=== PATIENT | female | born 1970 | race African-American/Black ===

== ENCOUNTER 2024-12-05 20:26 | Emergency (ER) | payer OTHER ==
--- OUTSIDE RECORDS SUMMARY | 2024-12-05 20:29 | XMS REPORT | Continuity of Care Document ---
Author Name Unknown Address [address] [facility] [address] [place] [address] [facility] thconnect Address [address] [facility] [address] [place] [address] Care Team Providers Care Retail Bakery Manager Name Role Phone Jose Boland Attending Clinician Unavailab Lees Attending Clinician Unavail Carrie rCespo Attending Clinician Unavaila Jose Weiss Admitting Clinician Unavailab diana Ching Admitting Clinician Unavail Carrie Crespo Admitting Clinician Maia juarez Payers Payer Name Policy Type Policy Number Effective Date Expirati on Date Source [employer]ET[employer] [id number] 2019 00:00:00 Problems Condition Name Condition Details Condition Category Status Onset Date Resolution Date Last Treatment Date Treating Clinician Comments Source Tenosynovi tis of right radial styloid Tenosynovi tis of Right Radial Styloid Problem Active 1-02 00:00: 00 [facility] Postoperat quentin nausea Postoperat quentin Nausea Problem Active 8-07 00:00: 00 [facility] Acquired trigger finger of right middle finger Acquired Trigger Finger of Right Middle Finger Problem Active 7-23 00:00: 00 [facility] 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 Problem Active 4-18 00:00: 00 [facility] Arthrofibr osis of left knee Arthrofibr osis of Left Knee Problem Active 1- 00:00: 00 [facility] Aftercare Aftercare Problem Active 2021-10 2 00:00: 00 [facility] Post traumatic osteoarthr itis Post Traumatic Osteoarthr itis Problem Active 2021-10 00:00: 00 [facility] Acquired valgus deformity of right knee Acquired Valgus Deformity of Right Knee Problem Active 2021-10 00:00: 00 [facility] Osteoarthr itis of left knee joint Osteoarthr itis of Left Knee Joint Problem Active 2021-10 00:00: 00 [facility] Pain of left knee joint Pain of Left Knee Joint Problem Active 2021-10 00:00: 00 [facility] Patellofem oral osteoarthr itis Patellofem oral Osteoarthr itis Problem Active 2017-10 0 00:00: 00 [facility] Snapping thumb syndrome Snapping Thumb Syndrome Problem Active 5 00:00: 00 [facility] Carpal tunnel syndrome Carpal Tunnel Syndrome Problem Active 5 00:00: 00 [facility] Osteoarthr itis of knee Osteoarthr itis of Knee Problem Active 01-25 00:00: 00 [facility] Chondromal acia Chondromal acia Problem Active 2011-10 00:00: 00 [facility] Current tear of medial cartilage AND/OR meniscus of knee Current Tear of Medial Cartilage AND/OR Meniscus of Knee Problem Active 2011-10 00:00: 00 [facility] Sprain of cruciate ligament of knee Sprain of Cruciate Ligament of Knee Problem Active 2011-10 00:00: 00 [facility] Allergies, Adverse Reactions, Alerts Allergy Name Allergy Type Status Severity Reaction(s) Onset Date Inactive Date Treating Clinician Comments Source No Known Allergie s DA Active U 04-24 00:00: 00 [facility] No Known Allergie s DA Active U 10-13 00:00: 00 [facility] No Known Drug Allergie s DA Active U 2021-10- 00:00: 00 [facility] No Known Allergie s DA Active U 06-25 00:00: 00 [facility] Social History Smoking Status Start Date Stop Date Source Never Smoker [facility] Medications Ordered Medication Name Filled Medication Name Start Date Stop Date Current Medication? Ordering Clinician Indication Dosage Frequency Signature (SIG) Comments Components Source Wegovy 2.4 mg/0.75 mL subcutaneou s pen injector INJECT 1 SYRINGE SUBCUTANEOU SLY ONCE A WEEK Wegovy 2.4 mg/0.75 mL subcutaneou s pen injector INJECT 1 SYRINGE SUBCUTANEOU SLY ONCE A WEEK No Wegovy 2.4 mg/0.75 mL subcutaneo us pen injector INJECT 1 SYRINGE SUBCUTANEO USLY ONCE A WEEK [facility] cephalexin 500 mg capsule TAKE 1 CAPSULE BY MOUTH TWICE A DAY cephalexin 500 mg capsule TAKE 1 CAPSULE BY MOUTH TWICE A DAY No cephalexin 500 mg capsule TAKE 1 CAPSULE BY MOUTH TWICE A DAY [facility] acetaminoph en 325 mg tablet acetaminoph en 325 mg tablet No acetaminop hen 325 mg tablet [facility] meloxicam 15 mg tablet Take 1 tablet every day by oral route with meals. meloxicam 15 mg tablet Take 1 tablet every day by oral route with meals. No 1 Q1D meloxicam 15 mg tablet Take 1 tablet every day by oral route with meals. [facility] ondansetron HCl 4 mg tablet TAKE 1 TABLET BY MOUTH TWICE A DAY FOR 3 DAYS ondansetron HCl 4 mg tablet TAKE 1 TABLET BY MOUTH TWICE A DAY FOR 3 DAYS No ondansetro n HCl 4 mg tablet TAKE 1 TABLET BY MOUTH TWICE A DAY FOR 3 DAYS [facility] tirzepatide 15mg/b6-4mg /0.5ml mdv (2ml 60mg) INJECT 50 UNITS (15MG) subcutaneou s ONCE WEEKLY tirzepatide 15mg/b6-4mg /0.5ml mdv (2ml 60mg) INJECT 50 UNITS (15MG) subcutaneou s ONCE WEEKLY No tirzepatid e15mg/b6-4 mg/0.5ml mdv (2ml 60mg) INJECT 50 UNITS (15MG) subcutaneo us ONCE WEEKLY [facility] Vital Signs Vital Name Observation Time Observation Value Comments S ource Height 2024-10-04 00:00:00 60 [in_i] [facility] Body Weight 2024-10-04 00:00:00 181 [lb_av] [facility] BMI (Body Mass Index) 2024-08-09 00:00:00 35.3 kg/m2 [facility] Body Weight 2024-08-09 00:00:00 181 [lb_av] [facility] Height 2024-08-09 00:00:00 60 [in_i] [facility] Height 2024-06-14 00:00:00 60 [in_i] [facility] BMI (Body Mass Index) 2024-06-14 00:00:00 35.3 kg/m2 [facility] Body Weight 2024-06-14 00:00:00 181 [lb_av] [facility] Height 2024-05-17 00:00:00 60 [in_i] [facility] Body Weight 2024-05-17 00:00:00 181 [lb_av] [facility] BMI (Body Mass Index) 2024-05-17 00:00:00 35.3 kg/m2 [facility] Body Weight 2024-04-24 00:00:00 181 [lb_av] [facility] Height 2024-04-24 00:00:00 60 [in_i] [facility] BMI (Body Mass Index) 2024-04-24 00:00:00 35.3 kg/m2 [facility] Height 2023-01-18 00:00:00 61 [in_i] [facility] BMI (Body Mass Index) 2023-01-18 00:00:00 34 kg/m2 [facility] Body Weight 2023-01-18 00:00:00 180 [lb_av] [facility] Height 2022-11-03 00:00:00 61 [in_i] [facility] BMI (Body Mass Index) 2022-11-03 00:00:00 34 kg/m2 [facility] Body Weight 2022-11-03 00:00:00 180 [lb_av] [facility] Height 2022-10-12 00:00:00 61 [in_i] [facility] BMI (Body Mass Index) 2022-10-12 00:00:00 34 kg/m2 [facility] Body Weight 2022-10-12 00:00:00 180 [lb_av] [facility] Height 2022-09-07 00:00:00 61 [in_i] [facility] BMI (Body Mass Index) 2022-09-07 00:00:00 34 kg/m2 [facility] Body Weight 2022-09-07 00:00:00 180 [lb_av] [facility] Height 2022-08-16 00:00:00 61 [in_i] [facility] Procedures Procedure Date / Time Performed Performing Clinicia n Source Incise Finger Tendon Sheath 2024-05-07 00:00:00 [facility] XR, knee, 3 view 2023-01-18 00:00:00 [facility] XR, knee, 3 view 2022-10-12 00:00:00 [facility] XR, bone length, hip to ankle 2022-08-16 00:00:00 [facility] XR, knee, 3 view 2022-08-10 00:00:00 [facility] Knee Surgery [facility] Encounters Start Date/Time End Date/Time Encounter Type Admission Type Attending Clinicians Care Facility Care Department Encounter ID Source 2024-11-16 08:34:00 2024-11-16 08:34:00 Outpatient Jose Leon [facility] DA[facility] [id number] 56 [facility] 2024-10-04 00:00:00 2024-10-04 00:00:00 Jose Boland MD: [address] [place] [phone] , Ph. [phone] [place] [facility] [address] [id number] [facility] 2024-08-09 00:00:00 2024-08-09 00:00:00 Jose Boland MD: [address] [place] [phone] , Ph. [phone] [place] [facility] [address] [place] [id number] [facility] 2024-06-14 00:00:00 2024-06-14 00:00:00 Jose Boland MD: [address] [place] [phone] , Ph. [phone] [place] [facility] [address] [id number] [facility] 2024-05-17 00:00:00 2024-05-17 00:00:00 Jose Boland MD: [address] [place] [phone] , Ph. [phone] [facility] [place] [facility] [address] [id number] [facility] 2024-05-07 08:59:00 2024-05-07 08:59:00 Outpatient Jose Leon [facility] DA[facility] [id number] 23 [facility] 2024-05-07 00:00:00 2024-05-07 00:00:00 Jose Boland MD: [address] [place] [phone] , Ph. [phone] [facility] [place] [facility] [id number] [facility] 2024-04-24 00:00:00 2024-04-24 00:00:00 Jose Boland MD: [address] [place] [address] , Ph. [phone] [facility] [place] [facility] [id number] [facility] 2023-05-06 00:00:00 2023-05-06 00:00:00 Outpatient [facility] _Husse_MD AOSM AOSM [id number] [facility] 2023-04-19 00:00:00 2023-04-19 00:00:00 Outpatient [facility] _Husse_ AOSM AOSM [id number] [facility] 2023-03-25 00:00:00 2023-03-25 00:00:00 Outpatient [facility] _Husse_ AOSM AOSM [id number] [facility] 2023-03-25 00:00:00 2023-03-25 00:00:00 Outpatient [facility] _Husse_ AOSM AOSM [id number] [facility] 2023-01-18 00:00:00 2023-01-18 00:00:00 Carrie Woo MD: [address] [place] [address] , Ph. [phone] [facility] [place] [facility] [id number] [facility] 2022-11-14 00:00:00 2022-11-14 00:00:00 Outpatient [facility] _Husse_ AOSM AOSM [id number] [facility] 2022-11-14 00:00:00 2022-11-14 00:00:00 Outpatient [facility] _Husse_ AOSM AOSM [id number] [facility] 2022-11-14 00:00:00 2022-11-14 00:00:00 Outpatient [facility] _Betinase_ AOSM AOSM [id number] [facility] 2022-11-03 00:00:00 2022-11-03 00:00:00 JENNIFFER Alvarado: [address] [place] [address] , Ph. [phone] [facility] [place] [facility] [id number] [facility] 2022-10-25 00:00:00 2022-10-25 00:00:00 Outpatient [facility] _Betinase_ AOSM AOSM [id number] [facility] 2022-10-25 00:00:00 2022-10-25 00:00:00 Outpatient [facility] _Clara_ AOSM AOSM [id number] [facility] 2022-10-18 00:00:00 2022-10-18 00:00:00 Outpatient [facility] _Husse_ AOSM AOSM [id number] [facility] 2022-10-14 05:03:00 2022-10-14 05:03:00 Outpatient Carrie Arciniega [facility] [id number] [address] [place] [address] [facility] 2022-10-14 00:00:00 2022-10-14 00:00:00 Carrie Woo MD: [address] [place] [address] , Ph. [phone] [facility] [place] [facility] [id number] [facility] 2022-10-12 00:00:00 2022-10-12 00:00:00 Outpatient [facility] _Husse_ AOSM AOSM [id number] [facility] 2022-10-12 00:00:00 2022-10-12 00:00:00 Outpatient [facility] _Husse_MD AOSM AOSM [id number] [facility] 2022-10-12 00:00:00 2022-10-12 00:00:00 Carrie Woo MD: [address] [place] [phone] , Ph. [phone] [facility] [place] [facility] [address] [place] [id number] [facility] 2022-10-06 00:00:00 2022-10-06 00:00:00 Outpatient [facility] _Husse_MD AOSM AOSM [id number] [facility] 2022-10-06 00:00:00 2022-10-06 00:00:00 Outpatient [facility] _Husse_MD AOSM AOSM [id number] [facility] 2022-09-29 00:00:00 2022-09-29 00:00:00 Outpatient [facility] _Husse_MD AOSM AOSM [id number] [facility] 2022-09-29 00:00:00 2022-09-29 00:00:00 JENNIFFER Alvarado: [address] [place] [phone] , Ph. [phone] [place] [facility] [id number] [facility] 2022-09-07 00:00:00 2022-09-07 00:00:00 Outpatient [facility] _Husse_MD AOSM AOSM [id number] [facility] 2022-09-07 00:00:00 2022-09-07 00:00:00 JENNIFFER Alvarado: [address] [place] [phone] , Ph. [phone] [place] [place] [facility] [id number] [facility] 2022-09-01 00:00:00 2022-09-01 00:00:00 Outpatient [facility]_[place] _Betinase_MD AOSM AOSM [id number] [facility] 2022-08-20 00:00:00 2022-08-20 00:00:00 Outpatient [facility] _Husse_MD AOSM AOSM [id number] [facility] 2022-08-18 09:04:00 2022-08-19 14:10:00 Inpatient Carrie Arciniega [facility] [id number] [facility] [place] [facility] 2022-08-18 00:00:00 2022-08-18 00:00:00 Outpatient [facility] _Betinase_ AOSM AOSM [id number] [facility] 2022-08-18 00:00:00 2022-08-18 00:00:00 Carrie Woo MD: [address] [place] [address] , Ph. [phone] [place] [place] [facility] [id number] [facility] 2022-08-16 16:12:00 2022-08-16 16:12:00 Outpatient Carrie Woo [facility] [id number] [facility] 2022-08-16 00:00:00 2022-08-16 00:00:00 Outpatient [facility] _Clara_ AOSM AOSM [id number] [facility] 2022-08-16 00:00:00 2022-08-16 00:00:00 Carrie Woo MD: [address] [place] [address] , Ph. [phone] [place] [facility] [address] [place] [id number] [facility] 2022-08-10 00:00:00 2022-08-10 00:00:00 Outpatient [facility] [facility]Clara_ [facility] [id number] [facility] 2022-08-10 00:00:00 2022-08-10 00:00:00 Vlad Khan MD: [address] [place] [address] , Ph. [phone] [place] [place] [facility] [id number] [facility] 2022-08-01 00:00:00 2022-08-01 00:00:00 Outpatient [facility] _Cl[place]_ [place] [id number] [facility] 2022-07-23 00:00:00 2022-07-23 00:00:00 Outpatient [facility]Cl[facility]_ [facility] [id number] [facility] Results Test Description Test Time Test Comments Results Resul t Comments Source - XR KNEE 1 OR 2 V LT 2022-10-15 06:41:00 [facility] : 1970 Sex: F Patient Name: ASUNCION CANTU Unit No: [id number] EXAMS: CPT CODE: [id number] XR KNEE 1 OR 2 [place] [address]12 IMAGES PROVIDED: 2 FINDINGS: Postoperative changes from left total knee arthoplasty demonstrated without evidence of immediate complication. No acute fracture is visualized. IMPRESSION: Postoperative exam as above. at 0641 Reported and signed by: Flex Jerome M.D. CC: Carrie Woo MD Technologist: YECENIA GARCIAS ARRT Transcribed D/ (0641) [facility] NAME: ASUNCION CANTU [address] PHYS: Carrie Monsalve MD : 1970 AGE: 52 SEX: F [place] [address] LOC: PRAVEEN PHONE #: [phone] EXAM DATE: 10/14/2022 STATUS: PATY [facility] FAX #: [phone] RAD #: D/C DT PAGE 1 Signed Report Patient Name: ASUNCION CANTU Unit No: [id number] EXAMS: CPT CODE: [id number] XR KNEE 1 OR 2 V LT 16404 (Continued) Orig Print D/T: S: 10/15/2022 (0644) [facility] NAME: CANTU,ASUNCION[address] PHYS: Carrie Monsalve MD : 1970 AGE: 52 SEX: F [place] [address] LOC: PRAVEEN PHONE #: [phone] EXAM DATE: 10/14/2022 STATUS: PATY [facility] FAX #: [phone] RAD #: D/C DT PAGE 2 Signed Report HGB [id number] 05:49:00* Test Item Value Reference Range Interpretation Comme nts HEMOGLOBIN (test code = HGB) 11.7 g/dL 12-16 L HEMATOCRIT (test code = HCT) 34.6 % 37-47 L SPECIMEN COMMENT: POD #1Hemoglobin and Hematocrit panel - [id number] 03:30:00* Test Item Value Reference Range Interpretation Comme nts hemoglobin (test code = hemoglobin) 11.7 g/dL 12-16 L hematocrit (test code = hematocrit) 34.6 % 37-47 L performing lab: (test code = performing lab:) [facility]- XR KNEE 1 OR 2 V [id number] 15:29:00 [facility] : 1970 Sex: F Patient Name: ASUNCION CANTU Unit No: [id number] EXAMS: CPT CODE: [id number] XR KNEE 1 OR 2 [place] [address] IMAGES PROVIDED: 2 FINDINGS: Postoperative changes from left total knee arthoplasty demonstrated without evidence of immediate complication. No acute fracture is visualized. IMPRESSION: Postoperative exam as above. [id number] Reported and signed by: Flex Jerome M.D. CC: Carrie Woo MD Technologist: Patricia Lind(R) Transcribed D/ (1529) [facility] [address] [facility] [address] PHYS: Carrie Monsalve MD : 1970 AGE: 52 SEX:F [place], [place] [address] LOC: Y.998 17 PHONE #: [phone] EXAM DATE: 08/18/2022 STATUS: ADM IN FAX #: [phone] RAD #: D/C DT PAGE 1 Signed Report Patient Name: ASUNCION CANTU Unit No: [id number] EXAMS: CPT CODE: [id number] XR KNEE 1 OR 2 [place] [id number] (Continued) Orig Print D/T: S: 08/18/2022 (1532) [facility] NAME: ASUNCION CANTU [address] PHYS: Carrie Monsalve MD : 1970 AGE: 52 SEX: F [place], [place] [address] LOC: Y.998 17 PHONE #: [phone] EXAM DATE: 08/18/2022 STATUS: ADM IN FAX #: [phone] RAD #: D/C DT PAGE 2 Signed ReportUR HCG [id number] 09:38:00* Test Item Value Reference Range Interpretation Comme nts UR HCG QUAL (test code = HCGQLU) NEGATIVE NEGATIVE test, [id number] 09:30:00* Test Item Value Reference Range Interpretation Comme nts ur HCG qual (test code = ur HCG qual) negative negative performing lab: (test code = performing lab:) [facility] MedicineCOMPREHENSIVE METABOLIC [id number] 11:22:00* Test Item Value Reference Range Interpretation Comme nts SODIUM (test code = NA) 140 mmol/L 136-145 N POTASSIUM (test code = K) 4.0 mmol/L 3.5-5.1 N CHLORIDE (test code = CL) 103.0 mmol/L 98-107 N CARBON DIOXIDE (test code = CO2) 26.0 mmol/L 21-32 N GLUCOSE (test code = GLU) 95 mg/dL 70-110 N BLOOD UREA NITROGEN (test code = BUN) 6 mg/dL 7-18 L GLOMERULAR FILTRATION RATE (test code = GFR) 62.4 >60 The Glomerular Filtration Rate is a calculated parameterbased on serum Creatinine, patient age and sex. GFR valuesless than 60 mL/min/1.73 square meters are indicative ofChronic Kidney Disease. Values less than 15 mL/min/1.73square meters indicate Kidney failure. The calculation forGFR is based on the CKD-EPI (2020) calculation. This formulais race indifferent and is the recommended formula for GFRby the National Kidney Foundation for Adults.The GFR will not calculate if the sex is unknown or if thepatient's age is <18 years. CREATININE (test code = CREAT) 1.06 mg/dL 0.55-1.30 N TOTAL PROTEIN (test code = PROT) 7.8 g/dL 6.4-8.2 N ALBUMIN (test code = ALB) 3.5 g/dL 3.4-5.0 N GLOBULIN (test code = GLOB) 4.3 g/dL 2.2-4.2 H ALBUMIN/GLOBULIN RATIO (test code = A/G) 0.8 0.7-2.0 N CALCIUM (test code = CA) 8.9 mg/dL 8.2-10.1 N BILIRUBIN TOTAL (test code = BILT) 0.50 mg/dL 0.2-1.00 N SGOT/AST (test code = AST) 15.0 U/L 15-37 N SGPT/ALT (test code = ALT) 18.0 U/L 12-78 N Please note new normal range. ALKALINE PHOSPHATASE TOTAL (test code = ALKP) 101 U/L 46-116 N CBC W/AUTO [id number] 11:22:00* Test Item Value Reference Range Interpretation Comme nts WHITE BLOOD CELL (test code = WBC) 8.2 K/mm3 5.8-11.0 N RED BLOOD CELL (test code = RBC) 4.26 M/mm3 4.2-5.4 N HEMOGLOBIN (test code = HGB) 13.2 g/dL 12-16 N HEMATOCRIT (test code = HCT) 37.8 % 37-47 N MEAN CELL VOLUME (test code = MCV) 89 fL 80-98 N MEAN CELL HGB (test code = MCH) 31.0 pg 27-34 N MEAN CELL HGB CONCENTRATION (test code = MCHC) 34.9 g/dL 30.8-34.1 H RED CELL DISTRIBUTION WIDTH (test code = RDW) 12.9 % 11-16 N PLT (test code = PLT) 306 K/mm3 130-400 N MEAN PLATELET VOLUME (test c ode = MPV) 11.1 fL 8.9-12.1 N NEUTROPHIL % (test code = NT%) 58.2 % 45-70 N LYMPHOCYTE % (test code = LY%) 33.5 % 20-40 N MONOCYTE % (test code = MO%) 5.6 % 3-10 N EOSINOPHIL % (test code = EO%) 2.0 % 1-5 N BASOPHIL % (test code = BA%) 0.5 % 0.0-1.1 N NEUTROPHIL # (test code = NT#) 4.76 K/mm3 2.00-7.50 N LYMPHOCYTE # (test code = LY#) 2.74 K/mm3 1.50-4.00 N MONOCYTE # (test code = MO#) 0.46 K/mm3 0.2-0.8 N EOSINOPHIL # (test code = EO#) 0.16 K/mm3 0.04-0.4 N BASOPHIL # (test code = BA#) 0.04 K/mm3 0.02-0.10 N MANUAL DIFF REQUIRED (test c ode = MDIFF) NO MANUAL DIFF NUCLEATED RED BLOOD CELL (te st code = NRBC) 0 % 0-0 N PROTHROMBIN [id number] 11:22:00* Test Item Value Reference Range Interpretation Comme nts PROTHROMBIN TIME PATIENT (test code = PTP) 11.2 secs 9.7-12.5 N Please note new normal range. INTERNATIONAL NORMAL RATIO (test code = INR) 1.01 <2.0 RECOMMENDED THER APEUTIC RANGE FOR ORAL ANTICOAGULANTTREATMENT: CONDITION INRProphylaxis of venous thrombosis in 2.0 - 3.0 high-risk medical or surgical patientsTreatment of venous thrombosis 2.0 - 3.0Prevention of embolism 2.0 - 3.0Prevention of recurrent embolism, or 3.0 - 4.5 patients with mechanical prosthetic intravascular valves IS PATIENT ON ANTICOAGULANTS ? WYas Lab been notified if Patient is on Heparin Drip? NOIf Yes, order CBC, OCCULT BLOOD, PT every other day NTHROMBOPLASTIN TIME [id number] 11:22:00* Test Item Value Reference Range Interpretation Comme nts PTT ACTIVATED (test code = APTT) 26.1 secs 26.6-34.6 L Please note new normal range. IS PATIENT ON ANTICOAGULANTS ? NHas Lab been notified if Patient is on Heparin Drip? NOIf Yes, order CBC, OCCULT BLOOD, PT every other day NComprehensive metabolic 2000 panel - Serum or [id number] 09:50:00* Test Item Value Reference Range Interpretation Comme nts sodium (test code = sodium) 140 mmol/L 136-145 potassium (test code = potassium) 4.0 mmol/L 3.5-5.1 chloride (test code = chloride) 103.0 mmol/L 98-107 carbon dioxide (test code = carbon dioxide) 26.0 mmol/L 21-32 glucose (test code = glucose) 95 mg/dL 70-110 blood urea nitrogen (test co de = blood urea nitrogen) 6 mg/dL 7-18 L glomerular filtration rate ( test code = glomerular filtration rate) 62.4 >60 creatinine (test code = creatinine) 1.06 mg/dL 0.55-1.30 total protein (test code = t otal protein) 7.8 g/dL 6.4-8.2 albumin (test code = albumin) 3.5 g/dL 3.4-5.0 globulin (test code = globulin) 4.3 g/dL 2.2-4.2 H albumin/globulin ratio (test code = albumin/globulin ratio) 0.8 0.7-2.0 calcium (test code = calcium) 8.9 mg/dL 8.2-10.1 bilirubin total (test code = bilirubin total) 0.50 mg/dL 0.2-1.00 SGOT/AST (test code = SGOT/AST) 15.0 U/L 15-37 SGPT/ALT (test code = SGPT/ALT) 18.0 U/L 12-78 alkaline phosphatase total ( test code = alkaline phosphatase total) 101 U/L 46-116 performing lab: (test code = performing lab:) [facility] Auto Differential panel - [id number] 09:50:00* Test Item Value Reference Range Interpretation Comme nts white blood cell (test code = white blood cell) 8.2 K/mm3 5.8-11.0 red blood cell (test code = red blood cell) 4.26 M/mm3 4.2-5.4 hemoglobin (test code = hemoglobin) 13.2 g/dL 12-16 hematocrit (test code = hematocrit) 37.8 % 37-47 mean cell volume (test code = mean cell volume) 89 fL 80-98 mean cell HGB (test code = m stan cell HGB) 31.0 pg 27-34 mean cell HGB concentration (test code = mean cell HGB concentration) 34.9 g/dL 30.8-34.1 H red cell distribution width (test code = red cell distribution width) 12.9 % 11-16 plt (test code = plt) 306 K/mm3 130-400 mean platelet volume (test c ode = mean platelet volume) 11.1 fL 8.9-12.1 neutrophil % (test code = neutrophil %) 58.2 % 45-70 lymphocyte % (test code = lymphocyte %) 33.5 % 20-40 monocyte % (test code = mono cyte %) 5.6 % 3-10 eosinophil % (test code = eosinophil %) 2.0 % 1-5 basophil % (test code = baso charles %) 0.5 % 0.0-1.1 neutrophil # (test code = neutrophil #) 4.76 K/mm3 2.00-7.50 lymphocyte # (test code = lymphocyte #) 2.74 K/mm3 1.50-4.00 monocyte # (test code = mono cyte #) 0.46 K/mm3 0.2-0.8 eosinophil # (test code = eosinophil #) 0.16 K/mm3 0.04-0.4 basophil # (test code = baso charles #) 0.04 K/mm3 0.02-0.10 manual diff required (test c ode = manual diff required) no manual diff nucleated red blood cell (te st code = nucleated red blood cell) 0 % 0-0 performing lab: (test code = performing lab:) [facility]PT[facility]2022-08-16 09:50:00* Test Item Value Reference Range Interpretation Comme nts prothrombin time patient (te st code = prothrombin time patient) 11.2 secs 9.7-12.5 international normal ratio ( test code = international normal ratio) 1.01 <2.0 performing lab: (test code = performing lab:) [facility] time [id number] 09:50:00 * Test Item Value Reference Range Interpretation Comme nts PTT activated (test code = P TT activated) 26.1 secs 26.6-34.6 L performing lab: (test code = performing lab:) [facility] MedicineMethicillin resistant Staphylococcus aureus [Presence] in Specimen by Organism specific [id number] 09:50:00* Test Item Value Reference Range Interpretation Comme nts MRSA surveillance screen (te st code = MRSA surveillance screen) see below performing lab: (test code = performing [facility] [id number] 09:50:00 * Test Item Value Reference Range Interpretation Comme nts mssa PCR surveillance screen (test code = mssa PCR surveillance screen) see below performing lab: (test code = performing lab:) [facility] Notes Date/Time Note Provider Source 2024-11-16 12:25:00 [id number] [facility] [address] [place] [address] PATIENT NAME: ASUNCION CANTU ADMIT DATE: 11/16/24 ACCOUNT NO: [id number] ROOM NO: AGE: 54 REPORT TYPE: OPERATIVE REPORT SEX: F ADMITTING PHYSICIAN: ATTENDING PHYSICIAN:Jose Boland MD OPERATION DATE: 11/16/2024 PREOPERATIVE DIAGNOSIS: Severe de Quervain's tenosynovitis, right wrist. POSTOPERATIVE DIAGNOSIS: Severe de Quervain's tenosynovitis, right wrist (thick retinaculum, two compartments with septum). OPERATIVE PROCEDURE: Release of first dorsal compartment, right wrist (severe, thick, two compartments with septum). SURGEON: Jose Boland M.D. RAWHIDE TRIMMER: ANESTHESIA: General anesthesia, laryngeal mask airway technique, supine position, with anti-nausea protocol. ESTIMATED BLOOD LOSS: None. SPECIMENS: None. INDICATIONS: This is a 54-year-old black female, right-hand dominant clerical worker. She has painful de Quervain's tenosynovitis of the right wrist. She has failed nonsurgical treatment with splinting and medication. She has severe thickness and severe tenderness at the first dorsal compartment, right wrist. Paul's test is severely painful. Surgery to release the first dorsal compartment, right wrist will be needed. The risks and expectations for surgery were discussed. Complications can include infection, hematoma, continued pain, subluxing tendons, radial sensory neuritis, scar, and anesthetic risks. No guarantees can be given. She has experienced nausea with anesthesia, and will have the anti-nausea protocol, including the scopolamine patch. She understands, and gives informed consent to proceed with surgery for her right wrist. DESCRIPTION OF PROCEDURE IN DETAIL: The patient received 2 g of IV Kefzol antibiotic. She also had scopolamine patch placed. She was taken to operating room #11. General anesthesia was induced. Laryngeal mask airway technique was utilized. The right hand and arm was prepped and draped in a sterile manner. Timeout was performed. The tourniquet was elevated to 250 mmHg. A 2.5 cm oblique incision was placed on the radial aspect of the right wrist. PATIENT NAME: ASUNCION CANTU The incision followed a skin crease. The skin was incised. Subcutaneous tissue was spread carefully in a longitudinal manner. Radial sensory nerves were protected and gently retracted. The first dorsal compartment was exposed. The retinaculum was very thick. The sheath was opened at its distal aspect, decompressing yellow inflammatory fluid. The thick sheath was then released in a distal to a proximal direction with the [place] blade. There was an equally thick accessory compartment as well. This compartment was opened at its distal aspect, and then released in a distal to proximal aspect. There was a large EPB tendon in the accessory compartment. The septum between the two compartments was removed to decompress the first dorsal compartment. Traction check confirmed the EPB tendon. Excellent release of both compartments was achieved. The wound was irrigated. Subcutaneous tissue was infiltrated with bupivacaine. The tourniquet was released. Good hemostasis was achieved. Tourniquet was elevated for closure. Subcutaneous tissue was approximated with interrupted #5-0 Vicryl sutures. The skin was approximated with a 5-0 Monocryl suture in a subcuticular fashion, reinforced with interrupted #6-0 nylon sutures. The incision was dressed with Xeroform, followed by the application of sterile dressings and a thumb spica splint. Total tourniquet time for the right wrist surgery was 18 minutes. She was successfully extubated in the operating room, and returned to the recovery room in good condition. Dictated By: Jose Boland MD Date Dictated: 11/16/2024 12:25:10 Date Transcribed: 11/16/2024 13:04:58 EVA/HEATHER/JOHNATHAN Receipt ID: [id number] Authenticated by Jose Boland MD On 11/19/2024 12:34:49 PM at 1234 PATIENT NAME: ASUNCION CANTU [facility] 2024-05-07 15:04:00 [id number] [facility] [address] [place] [address] PATIENT NAME: ASUNCION CANTU ADMIT DATE: 05/07/24 ACCOUNT NO: [id number] ROOM NO: AGE: 53 REPORT TYPE: OPERATIVE REPORT SEX: F ADMITTING PHYSICIAN: ATTENDING PHYSICIAN:Jose Boland MD OPERATION DATE: 05/07/2024 PREOPERATIVE DIAGNOSIS: Chronic right middle trigger finger with stiffness. POSTOPERATIVE DIAGNOSIS: Chronic right middle trigger finger with stiffness. OPERATIVE PROCEDURE: Release of A1 sandy, right middle trigger finger. SURGEON: Jose Boland MD RAWHIDE TRIMMER: ANESTHESIA: General anesthesia, laryngeal mask airway technique, supine position. ESTIMATED BLOOD LOSS: None. SPECIMENS: None. 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 She previously had surgery to release the left trigger thumb by another surgeon in 2016. She now has triggering and locking of the right middle finger for 6 months. The right middle finger has become more stiff and painful. The locking is painful and sometimes has to be manually extended. Surgery to release the A1 sandy, chronic right middle trigger finger will be needed. The risks and expectations for surgery were discussed. Complications can include infection, hematoma, recurrent triggering or locking, limited finger motion, scar, and anesthetic risks. No guarantees can be given. She understands and gives informed consent to proceed with surgery for her chronic right middle trigger finger. DESCRIPTION OF PROCEDURE IN DETAIL: The patient received 2 g of IV Kefzol antibiotic. She was taken to operating room #11. General anesthesia was induced. Laryngeal mask airway technique was utilized. The right hand and arm were prepped and draped in a sterile manner. Timeout was performed. The tourniquet was elevated to 250 mmHg. A 2 cm oblique incision was placed just beyond the distal palmar crease overlying the flexor tendons to the right middle finger. The skin was incised. Subcutaneous flaps were elevated. Moderate tenosynovitis was present proximal to the A1 sandy. The A1 sandy was incised longitudinally with the [place] blade. The A1 sandy was released completely in a proximal and distal direction PATIENT NAME: ASUNCION CANTU with the tenotomy scissors. There was no A0 sandy. There was some fraying on the sublimis flexor tendon slip. Range of motion for the right middle finger was excellent after release of the thick A1 sandy. There was no further recurrent triggering or locking. Reduction tenoplasty was not required. Subcutaneous tissue was infiltrated with Marcaine. The skin was carefully approximated with interrupted #6-0 nylon sutures. The incision was dressed with Xeroform, followed by the application, sterile dressings and a volar splint. Tourniquet time for the right hand surgery was 12 minutes. She was successfully extubated in the operating room and returned to the recovery room in good condition. Dictated By: Jose Boland MD Date Dictated: 05/07/2024 15:04:06 Date Transcribed: 05/07/2024 15:45:01 [facility] Receipt ID: [id number] Authenticated by Jose Boland MD On 05/14/2024 08:18:36 AM at 0818 PATIENT NAME: ASUNCION CANTU [facility] 2022-10-14 08:37:00 [facility] Discharge Summary REPORT#:[id number] REPORT STATUS: Signed DATE:10/14/22 TIME: 0837 PATIENT: ASUNCION CANTU UNIT #: [id number] ROOM/BED: : 68 AGE: 52 SEX: F ATTEND: Carrie Woo MD ADM AUTHOR: Carrie Woo MD * ALL edits or amendments must be made on the electronic/computer document * General Information Discharge date: 10/14/22 Admission diagnosis: left knee arthrofibrosis Discharge diagnosis: same Hospital course: Discharge Diagnosis: Left Knee arthrofibrosis Procedure: Left Knee manipulation under anesthesia Hospital Course and Findings The patient underwent the procedure without incident. Findings were significant for arthrofibrosis of the knee. The patient was hemodynamically and medically monitored during the postoperative period. The patient was progressively able to tolerate PO pain medications and the appropriate diet. Physical therapy was instituted, with a progressive ability to ambulate and perform exercises. The patient was eventually deemed stable and safe for discharge. Despite factors which projected a longer hospital stay, the patient fulfilled criteria for earlier than expected discharge, including control of pain, early mobilization with therapy, and a stable hemodynamic status. At discharge, the patient was comfortable, with a controlled pain level. There were no chest or abdominal symptoms present. Discharge physical examination demonstrated stable vital signs and no acute distress. The patient had an intact wound with no significant drainage, and no calf tenderness and a negative Mary's sign bilaterally. There were no neurologic or vascular deficits or changes from the preoperative state. Disposition: Discharged to home Discharge Condition: Stable Instructions: Instruction sheet given to patient Activity: Ambulate with assistance, with weight-bearing as instructed in the hospital. Diet: As per preoperatively Prescriptions 1. Pain Medications: As per discharge prescription, with progressive weaning as pain decreases 2. Physical Therapy: Will undergo PT for gait training, mobilization, rzaln-rc-cfwmia, and strengthening. Patient was informed to that they need to arrange for therapy as quickly as possible. The importance of early advancement of wfldn-do-wizdtt with home exercises, and physical therapy was stressed to the patient. Follow-up Appointment: Patient instructed to arrange appointment for an office visit in 3 weeks Med Rec Med Rec Discharge meds: Stop taking the following medications: ASPIRIN (ASPIRIN) 81 MG TAB.CHEW 81 MILLIGRAM ORAL TWICE DAILY. Days = 30 Qty = 60 DOXYCYCLINE HYCLATE (VIBRAMYCIN) 100 MG CAP 100 MILLIGRAM ORAL TWICE DAILY. Qty = 14 Continue taking these medications: L-NORGEST/E.ESTRADIOL-E.ESTRAD (SEASONIQUE) 150-30(84) PACKET 1 TABLET ORAL BEDTIME. HYDROcodone/APAP (HYDROcodone/APAP 10/325) 10 MG-325 MG TAB 1 TABLET ORAL EVERY 6 HOURS NEEDED. as needed for Severe Pain Qty = 20 Instructions: break in half at first POLYETHYLENE GLYCOL 3350 (MIRALAX) 17 GRAM POWDER 17 GRAM ORAL TWICE DAILY. as needed for Constipation Days = 5 Qty = 10 MELOXICAM (MOBIC) 7.5 MG TAB 7.5 MILLIGRAM ORAL TWICE DAILY. as needed for Inflammation Days = 30 Qty = 60 ONDanestron (ZOFRAN ODT) 8 MG TAB.RAPDIS 8 MILLIGRAM ORAL THREE TIMES A DAY. as needed for Nausea/Vomiting Qty = 8 methocarbamoL (ROBAXIN) 500 MG TAB 500 MILLIGRAM ORAL FOUR TIMES DAILY NEEDED. as needed for Muscle spasms Qty = 30 traMADol (ULTRAM) 50 MG TAB 50 MILLIGRAM ORAL EVERY 6 HOURS NEEDED. as needed for ACUTE PAIN Qty = 20 Discharge Instructions PCP )( Discharge to: Home/Self Care Discharge Instructions Additional Discharge Routines: Attending Follow-Up )( Diet: Resume Home Diet/Feeds Follow-up Appointments Attending Physician: Attending Physician: Carrie Woo MD Attending physician follow up timeframe: In 2-3 weeks Special instructions: call office for 3 week post-op appointment at 0840 RPT #:[id number] END OF REPORT [facility] 2022-10-14 07:54:00 [facility] Operative Note - Full REPORT#:[id number] REPORT STATUS: Signed DATE:10/14/22 TIME: 0754 PATIENT: ASUNCION CANTU UNIT #: [id number] ROOM/BED: : 68 AGE: 52 SEX: F ATTEND: Carrie Woo MD ADM AUTHOR: Carrie Woo MD * ALL edits or amendments must be made on the electronic/computer document * Operative Report Start date: 10/14/22 Start time: 729 Pre-procedure diagnosis: Left Knee Arthrofibrosis Post-procedure diagnosis: Left Knee Arthrofibrosis Procedures performed: Left Knee Manipulation under anesthesia Technique/Procedure: Standard MARSHAL Primary Surgeon: MD Chilo Building Construction Inspector(s): none Anesthesia: moderate sedation Operative findings: Improved ROM Complications: none Estimated blood loss in ml's: none Specimens removed/altered: none Implant(s): none Free Text Op Notes Free Text Op Notes: TE: KNEE MANIPULATION Indications: The patient is a 52 year old female who is status post knee arthroplasty surgery. The patient performed well post operatively with regards to pain control but unfortunately, developed arthrofibrosis. We explained the risks and benefits of the procedure to the patient including the risk of fracture. Procedure in detail: The patient was met in the pre-operative holding area where the operative site was marked and all questions were answered prior to transfer to the OR. In the OR the patient was anesthetized and then a time out was performed. Next, with my arms placed around her distal thigh and the hip flexed to 90 degrees, the patient s lower leg suspended by gravity, the patient s hip was aggressively flexed and extended and the knee was flexed by gravity suspension of the leg. The patient s knee was allowed to flex to 125 degrees at this point. At the conclusion of the procedure, the patient was awakened from anesthesia and transferred to the PACU in good condition. PACU x-rays were taken. at 0756 RPT #:[id number] END OF REPORT [facility] 2022-08-19 09:30:00 [facility] Clinical Note REPORT#:[id number] REPORT STATUS: Signed DATE:08/19/22 TIME: 929 PATIENT: ASUNCION CNATU UNIT #: [id number] ROOM/BED: [address] : 68 AGE: 52 SEX: F ATTEND: Carrie Woo MD ADM AUTHOR: Ganesh Morris MD * ALL edits or amendments must be made on the electronic/computer document * Clinical Note Note: [facility] Ganesh Iyer M.D. (cell text [phone]) Assessment/Plan 1.) Anemia of acute blood loss- .Hgb 11.7, asymptomatic. 2.) S/p Left TKA- .acute multi-modal pain control and followup. Anticoagulation as per Dr. Woo. 3.) Estrogen Replacement Therapy- .on Rx. 4.) OsteoArthritis- .continue on Rx. * OK for DISCHARGE per Internal Medicine. Prior Events/Overnight: Uneventful. Chief Complaint: No significant complaints. Objective Vital Signs Date Temp Pulse Resp B/P B/P Mean Pulse Ox FiO2 08/18-08/19 97.5-98.4 73-121 12-25 130-175/72-10 92.8-121.4 96-100 32 6 Gen: Alert, oriented, in mild discomfort Neck: No Masses, No Thyromegaly- CV: Regular Rate Rhythm / Edema- no significant Resp: Clear To Ascultation / Normal Respiratory Effort ABD: NonTender / NonDistended MS/Skin: No sign of compartment syndrome / +ankle DF/PF Other: Labs/X-ray: Laboratory Tests: 08/19 0330 Chemistry Sodium (136 - 145 mmol/L) 137 Potassium (3.5 - 5.1 mmol/L) 4.7 Chloride (98 - 107 mmol/L) 103.0 Carbon Dioxide (21 - 32 mmol/L) 24.8 BUN (7 - 18 mg/dL) 10 Creatinine (0.55 - 1.30 mg/dL) 1.11 Glomerular Filtr Rate (>60) 59.1 Glucose (70 - 110 mg/dL) 144 H Calcium (8.2 - 10.1 mg/dL) 8.6 Hematology Hgb (12 - 16 g/dL) 11.7 L Hct (37 - 47 %) 34.6 L Recent Impressions: RADIOLOGY - XR KNEE 1 OR 2 V LT 08/18 1441 Report Impression - Status: SIGNED Entered: 08/18/2022 1532 IMPRESSION: Postoperative exam as above. Impression By: Oliva Epps M.D. at 1124 RPT #:[id number] END OF REPORT [facility] 2022-08-19 08:55:00 [facility] Discharge Summary REPORT#:[id number] REPORT STATUS: Signed DATE:08/19/22 TIME: 854 PATIENT: ASUNCION CANTU UNIT #: [id number] ROOM/BED: [address] : 68 AGE: 52 SEX: F ATTEND: Carrie Woo MD ADM AUTHOR: Carrie Woo MD * ALL edits or amendments must be made on the electronic/computer document * General Information Discharge date: 08/19/22 Admission diagnosis: left knee OA Discharge diagnosis: same Hospital course: Discharge Diagnosis: Left Knee Degenerative Disease Procedure: Left Knee Arthroplasty Hospital Course and Findings The patient underwent the procedure without incident. Findings were significant for degenerative disease of the knee. The patient was hemodynamically and medically monitored during the postoperative period. Anticoagulation was instituted for postoperative DVT prophylaxis. The patient was progressively able to tolerate PO pain medications and the appropriate diet. Physical therapy was instituted, with a progressive ability to ambulate and perform exercises. The patient was eventually deemed stable and safe for discharge. Despite factors which projected a longer hospital stay, the patient fulfilled criteria for earlier than expected discharge, including control of pain, early mobilization with therapy, and a stable hemodynamic status. At discharge, the patient was comfortable, with a controlled pain level. There were no chest or abdominal symptoms present. Discharge physical examination demonstrated stable vital signs and no acute distress. The patient had an intact wound with no significant drainage, and no calf tenderness and a negative Mary's sign bilaterally. There were no neurologic or vascular deficits or changes from the preoperative state. Disposition: Discharged to home Discharge Condition: Stable Instructions: Instruction sheet given to patient Activity: Ambulate with assistance, with weight-bearing as instructed in the hospital. Diet: As per preoperatively Prescriptions 1. Pain Medications: As per discharge prescription, with progressive weaning as pain decreases 2. Anticoagulation: As per discharge prescription, or PreOp anticoagulant, as discussed with patient 3. Physical Therapy: Will undergo PT for gait training, mobilization, yjiys-hy-zqstrk, and strengthening. Patient was informed to that they need to arrange for therapy as quickly as possible. The importance of early advancement of bubxl-qm-swektt with home exercises, and physical therapy was stressed to the patient. Follow-up Appointment: Patient instructed to arrange appointment for an office visit in 3 weeks Med Rec Med Rec Discharge meds: Continue taking these medications: L-NORGEST/E.ESTRADIOL-E.ESTRAD (SEASONIQUE) 150-30(84) PACKET 1 TABLET ORAL BEDTIME. Start taking the following new medications: ASPIRIN (ASPIRIN) 81 MG TAB.CHEW 81 MILLIGRAM ORAL TWICE DAILY. Days = 30 Qty = 60 No Refills DOXYCYCLINE HYCLATE (VIBRAMYCIN) 100 MG CAP 100 MILLIGRAM ORAL TWICE DAILY. Qty = 14 No Refills HYDROcodone/APAP (HYDROcodone/APAP 10/325) 10 MG-325 MG TAB 1 TABLET ORAL EVERY 6 HOURS NEEDED. as needed for Severe Pain Qty = 20 No Refills Instructions: break in half at first POLYETHYLENE GLYCOL 3350 (MIRALAX) 17 GRAM POWDER 17 GRAM ORAL TWICE DAILY. as needed for Constipation Days = 5 Qty = 10 No Refills MELOXICAM (MOBIC) 7.5 MG TAB 7.5 MILLIGRAM ORAL TWICE DAILY. as needed for Inflammation Days = 30 Qty = 60 Refills = 1 ONDanestron (ZOFRAN ODT) 8 MG TAB.RAPDIS 8 MILLIGRAM ORAL THREE TIMES A DAY. as needed for Nausea/Vomiting Qty = 8 Refills = 1 methocarbamoL (ROBAXIN) 500 MG TAB 500 MILLIGRAM ORAL FOUR TIMES DAILY NEEDED. as needed for Muscle spasms Qty = 30 No Refills traMADol (ULTRAM) 50 MG TAB 50 MILLIGRAM ORAL EVERY 6 HOURS NEEDED. as needed for ACUTE PAIN Qty = 20 No Refills Discharge Instructions PCP )( Discharge to: Home/Self Care Discharge Instructions Additional Discharge Routines: Attending Follow-Up )( Diet: Resume Home Diet/Feeds Follow-up Appointments Attending Physician: Attending Physician: Carrie Woo MD Attending physician follow up timeframe: In 2-3 weeks Special instructions: call office for appointment at 0855 RPT #:[id number] END OF REPORT [facility] 2022-08-19 08:51:00 [facility] Orthopaedic Progress Note REPORT#:[id number] REPORT STATUS: Signed DATE:08/19/22 TIME: 0851 PATIENT: ASUNCION CANTU UNIT #: [id number] ROOM/BED: [address] : 68 AGE: 52 SEX: F ATTEND: Carrie Woo MD ADM AUTHOR: Carrie Woo MD * ALL edits or amendments must be made on the electronic/computer document * Subjective Comments: Procedure: L TKA DOS: 08/18/22 Subjective: Patient doing well and pain controlled. Physical Exam: NAD, AAOx3 Surgical site: C/D/I Operative Extremity: mepilex with blood at distal incision. Mepilex removed and alecia in place without active blleding. No other concerns Neuro: SILT Sa/Rosen/Sp/Dp Motor: Intact DF/PF WWP Assessment: 52 year old female doing well following surgery Plan: - prevena wound vac placed - Pain control - Appreciate IM recommendations - PT: WBAT - Despite originally planned for 2 night s stay, the patient did exceed expectations and was able to be discharged on POD 1. - Possible discharge pending clearance at 0852 RPT #:[id number] END OF REPORT [facility] 2022-08-18 17:56:00 [facility] Clinical Note REPORT#:[id number] REPORT STATUS: Signed DATE:08/18/22 TIME: 175 PATIENT: ASUNCION CANTU UNIT #: [id number] ROOM/BED: [address] : 68 AGE: 52 SEX: F ATTEND: Carrie Woo MD ADM AUTHOR: Ganesh Morris MD * ALL edits or amendments must be made on the electronic/computer document * Clinical Note Note: [facility] Ganesh Iyer MD (cell text [phone]) Internal Medicine Consult at request of : Dr. Carrie Woo Chief Complaint: left knee pain HPI: 52 yo F is now s/p Left Total Knee Arthroplasty (TKA) with spinal anesthesia and peripheral nerve block by Dr. Woo. Ms. Leon relates years of progressive left knee pain (recently severe), worse with activity, and with restricted motion at times in quality. She has failed conservative management. Comorbidities: see below. PmHx: .BMI 35.7 ALLERGY: Allergies: No Known Drug Allergies (Coded, 08/16/22) Home Medications: Home Medications: L-NORGEST/E.ESTRADIOL-E.ESTRAD (SEASONIQUE) 1 TAB PO BEDTIME SgHx: .Left TKA, left knee scope, right finger SHx: Tob: none FHx: .No significant hx of DVT/PE. Alcohol: none Drugs: none Lives: with spouse . . Vitals: Vital Signs: Date Time Temp Pulse Resp B/P B/P Pulse O2 O2 Flow FiO2 Mean Ox Delivery Rate 08/18 1720 98.2 109 12 152/88 109.5 96 Nasal cannula 08/18 1625 98.4 121 14 160/102 121.4 100 Nasal cannula 08/18 1555 98.0 100 19 152/81 100 Nasal 3 cannula 08/18 1550 Nasal 3 cannula 08/18 1540 91 16 161/86 100 Nasal 3 cannula 08/18 1525 82 15 163/90 100 Nasal 3 cannula 08/18 1505 94 21 175/85 100 Nasal 3 cannula 08/18 1450 101 24 159/95 100 Simple 8 mask 08/18 1438 103 24 159/87 100 Simple 8 mask 08/18 1429 Simple 8 mask 08/18 1423 98.3 91 14 130/72 100 Simple 8 mask 08/18 1139 74 22 142/82 100 Simple 6 mask 08/18 1138 78 25 142/77 100 Simple 6 mask 08/18 1133 90 23 152/101 100 Simple 6 mask 08/18 1128 92 18 156/106 100 Simple 6 mask 08/18 0910 96.9 81 18 165/79 100 Room air Gen: Alert, in mild discomfort. EYE: Nl lids conjunctiva. ENT: Nl ears Nose, nl lips,. Neck: Supple, nl thyroid, No masses. CV: Regular Rate Rhythm, no heave or significant murmur. Edema- none RESP: Clear to Auscultation, normal Respiratory effort. ABD: Soft, NonDistended,. LYM: No significant cervical Lymphadenopathy. MS: No sign of compartment syndrome, knee is wrapped. NEURO: Nonfocal, grossly normal sensation of LE, +Ankle DF/PF . . Preop Labs (08/16/22): CBC:. Hgb 13.2, Plt 306, CHEM: Na 140, K 4.0, Cr 1.06 (eGFR 62.4%), . Ekg : NSR . (medium to high risk of complications or morbidity) (major surgery) (IV sedative, meds) . Assessment Plan 1.) Anemia of Acute Blood Loss- .will recheck tomorrow. 2.) S/p Left TKA- .acute multi-modal pain control and followup. Anticoagulation as per Dr. Woo. 3.) Estrogen Replacement Therapy- .on Rx. 4.) OsteoArthritis- .continue on Rx. . Ganesh Iyer M.D. Thanks! . . . . . G8417 BMI documented as above normal parameters and a f/u plan is documented G9903 - Patient screened for tobacco use AND identified as a tobacco non-user 1123F - ACP discussion - default code status while at [facility]. at 2140 RPT #:[id number] END OF REPORT [facility] 2022-08-18 16:44:00 [facility] Operative Note - Full REPORT#:[id number] REPORT STATUS: Signed DATE:08/18/22 TIME: 1644 PATIENT: ASUNCION CANTU UNIT #: [id number] ROOM/BED: [address] : 68 AGE: 52 SEX: F ATTEND: Carrie Woo MD ADM AUTHOR: Carrie Woo MD * ALL edits or amendments must be made on the electronic/computer document * Operative Report Start date: 08/18/22 Start time: 1230 Pre-procedure diagnosis: 1. Left Knee Osteoarthritis 2. Status post High Tibial Osteotomy 3. Valgus deformity Post-procedure diagnosis: 1. Left Knee Osteoarthritis 2. Status post High Tibial Osteotomy 3. Valgus deformity Procedures performed: Left Total Knee Arthroplasty - Complex Case Technique/Procedure: Velys robotic assisted technique Primary Surgeon: MD Chilo Building Construction Inspector(s): LIZZIE Lopez Anesthesia: regional anesthesia, spinal anesthetic Operative findings: Varus joint line oblquity with overal valgus malalignment due to prior HTO. The Peek implant was encountered during the procedure and was bypassed with a short stem. Complications: none Estimated blood loss in ml's: 25 Specimens removed/altered: none Implant(s): Depuy Attune Femur Size 4N, Tibia Size 4 FB revision tray, short stem, Liner 8mm, Patella n/a Tourniquet: 64 minutes at 250mmhg Free Text Op Notes Free Text Op Notes: Complex Case Prior HTO The patient had prior high tibial osteotomy with retained tibial PEEK implant and altered anatomy with varus joint lined obliquity but with overall valgus alignment. This increased the complexity of this procedure. Approx 25% more time was needed for the approach due to the previous surgical incision and scar tissue present, exposure, bone resection, placement of components, and careful layered closure due to the patient's altered anatomy. To that end this constitutes a case with complexity beyond the standard case. social worker assistant: The skilled assistance of the assistant kitchen manager surgeon was necessary during this reconstructive procedure. They assisted with every aspect of the operation including, but not limited to, proper and safe positioning of the patient, obtaining adequate surgical exposure, manipulation of surgical instruments, perfect visualization of the surgical field, assistance during implant placement , manipulation of the instrumentation during implant placement, assistance during knot tying, assisting with access to each portion of the joint, assisting with limb positioning during the procedure, incision closure, dressing placement , assistance with moving the patient off of the operating table, and assistance with patient transfer from the operating room. Their assistance allowed me to perform the most sensitive and technical portions of this operation using 2 hands, thus enhancing patient safety. This would not be possible without the help of a skilled assistant kitchen manager familiar with the procedure and capable of safely performing the aforementioned tasks. I am not a part of a teaching program, and thus, no surgical residents or interns were available to assist. Indication: The patient presented to me with a longstanding history of knee degenerative joint disease after having failed high tibial osteotomy. Despite nonoperative treatment, it has progressed to the point where it has been severely debilitating. After careful discussion of the risks and benefits of the surgery, including the potential complications of deep venous thrombosis, infection, nerve or blood vessel injury, ligament injury, fracture, pin site infections and related complications and incomplete resolution of pain, the patient wished to proceed with a total knee replacement. Procedure: Prophylactic antibiotics were administered 30 minutes prior to surgery. The correct surgical site was identified and signed. The patient was brought to the Operating Room and placed on the operating table. A time-out procedure was performed by all members of the surgical team, and correct side and procedure were verified. The tourniquet was applied. After induction of anesthesia, the operative lower extremity was prepped and draped in the usual sterile manner. The knee was then flexed and exsanguinated. Pre-operative antibiotics were given and when appropriate, IV TXA was administered and documented in the anesthesia report. The tourniquet was inflated. Using a scalpel, the skin was incised approximately 2 cm above the proximal pole of the patella and extended to the level of the tibial tubercle and connected distally with the previous surgical incision. The dissection was carried down to the extensor mechanism. There was exuberant scar tissue present. A medial parapatellar arthrotomy was performed. Inflamed synovium was removed and the infrapatellar fat pad was excised. An appropriate medial release was continued around the posteromedial aspect of the tibia and the deep insertion of the medial collateral ligament was dissected free, just enough to obtain adequate exposure of the knee. The infra-patellar fat pad was excised. The patella was subluxed but not everted and retracted laterally and the knee flexed to 90 degrees. The ACL and PCL were transected, as was the anterior horn of the lateral meniscus. Attention was then turned to the tibial and femoral arrays. An 11 blade was used to make a puncture hole just distal to the incision for the distal tibial pin. Unicortical self-drilling self-tapping pins were put in place intra-incisional in the femur from the medial side and one pin was placed intra- incisionally in the tibia and another through the tibial stab wound. Next, the arrays were put on the tibia and the femur. All osteophytes were removed and soft tissue releases were performed at this point. Next, we began our registration. Femoral head registration was performed first by rotating the hip. We then registered the medial and lateral malleoli. Then surface registration points were taken from the distal femur and proximal tibia. This gave us excellent registration after performing the surface check. Ligament balancing and kinematic tracking were then addressed. Poses were taken throughout the entire arc of motion with varus and valgus stress. Next, with the planning screen, we aligned our cuts to yield excellent soft tissue balance medially and laterally in flexion and extension. The [employer] robot was then brought in to perform the bone cuts. We began with the distal femoral cut, this was then followed by the posterior chamfeur cut, the anterior cut, the anterior chamfeur and then the posterior cut. Finally, the proximal tibial cut was made. Care was taken to ensure appropriate protection of soft tissues during all bone cuts. At this point the knee was flexed, and a thin bent Hohmann retractor was placed laterally. Laminar spreaders were placed medially and laterally sequentially to expose and assess the flexion space. The medial and lateral menisci, and posterior condylar osteophytes were excised. Flexion/extension gaps were assessed and found to be symmetric and stable. The final cutting guide was placed onto the distal femur and resection completed. The cutting block and resected bone were removed. Trial components were placed with the appropriately sized femoral component and by floating the tibial component. Next, the knee was reduced and taken through range of motion. The knee was stable to varus and valgus stress at 0-90 degrees. With the trial in place, the knee was taken through range of motion. The patella was observed to track midline using the no thumbs technique. All trial components were removed. The trabecular surfaces were pulse lavaged and dried. Care was taken to make the cancellous bone surfaces dry and free of bone debris. Using hand mixed cement, the real tibial baseplate tray was cemented into place followed by the femoral component. After the removal of excess cement, the polyethylene insert was locked into the tibial tray. The knee was reduced and brought into extension. Following this, the knee was irrigated with dilute betadine. The tourniquet was deflated. Hemostasis was achieved with electrocautery. The knee was thoroughly irrigated with pulse lavage. A deep periarticular and superficial injection was used to infuse the periarticular soft tissue. The medial parapatellar arthrotomy was repaired with interrupted #2 Vicryl and a running barbed suture and the subcutaneous tissue repaired with interrupted 1 and 2-0 running barbed sutures. The skin was closed with monocryl and an adhesive. A sterile compressive dressing was applied. The patient was transferred to the recovery room in satisfactory condition. Sponge and instrument counts were correct. Prophylactic antibiotics will be discontinued within 24 hours. I was present for all portions of the procedure. Post-operative Plan: The patient be allowed to weight-bear as tolerated. They will receive perioperative antibiotics and be started on DVT prophylaxis. at 1656 RPT #:[id number] END OF REPORT [facility] 2022-08-16 10:00:00 [id number] [place] [id number] PATIENT NAME: ASUNCION CANTU ADMIT DATE: 08/18/22 ACCOUNT NO: [id number] ROOM NO: [facility] AGE: 52 REPORT TYPE: ELECTROCARDIOGRAM SEX: F ADMITTING PHYSICIAN:Carrie Woo MD ATTENDING PHYSICIAN:Carrie Woo MD Order: [id number] Test Reason : PRE OP CLEARANCE >50 Test Date/Time Stamp: TueAug 16 2022 10:00:04 Blood Pressure : / mmHG Vent. Rate : 079 BPM Atrial Rate : 079 BPM P-R Int : 136 ms QRS Dur : 086 ms QT Int : 380 ms P-R-T Axes : 067 059 040 degrees QTc Int : 435 ms Normal sinus rhythm Normal ECG No previous ECGs available Confirmed by LADAN MIDDLETON MD ([id number]) on 08/18/2022 8:48:35 PM Referred By: Carrie Woo Confirmed by:LADAN MIDDLETON MD PATIENT NAME: ASUNCION CANTU [facility]
[2024-12-05] MEDS ORDERED: ONDANSETRON 4 MG (ODT) TAB ONE (23:01)
[2024-12-05] MEDS ORDERED: MECLIZINE HCL 12.5 MG TAB ONE (23:01)
[2024-12-05 23:14] LABS: Specific Gravity 1.025 (1.005-1.030); Sqamous Epithelial <5 /HPF (None Seen); Urine Bacteria <20 /HPF (<20); Urine Bilirubin NEGATIVE (Negative); Urine Blood Negative (Negative); Urine Clarity Clear (Clear); Urine Color Light-Yellow (Yellow); Urine Culture Reflex Order NOT NEEDED; Urine Glucose NEGATIVE (Negative); Urine Ketones NEGATIVE (Negative); Urine Microscopic Reflex YN ORDER UMIC; Urine Mucus Slight /HPF (None Seen); Urine Nitrite NEGATIVE (Negative); Urine Protein TRACE (Negative); Urine RBC <5 /HPF (None Seen); Urine Urobilinogen Normal (Normal); Urine WBC <5 /HPF (<5); Urine pH 6.5 (5.0-7.0)
[2024-12-06 01:06] LABS: Absolute Lymphocytes (CBC) 2.1 K/uL (0.7-4.9); Absolute Monocytes 0.5 K/uL (0.1-1.3); Absolute Neutrophil 7.8 K/uL (1.8-8.0); Basophils % 0.3 % (0-1.3); Eosinophils % 0.3 % (0-4.4); Hematocrit 37.9 % (36.0-45.0); Hemoglobin 12.8 g/dL (12.0-15.0); Lymphocytes % 20.3 % (15.3-44.8); MCH 30.8 pg (27.0-35.0); MCHC 33.7 g/dL (32.0-36.0); MCV 91.2 fL (80-100); MPV 9.3 fL (7.6-11.3); Monocytes % 4.7 % (3.3-12.3); Neutrophils % 74.4 % (41.7-73.7); Platelets 229 thou/uL (152-406); RBC Red Blood Cell Count 4.15 M/uL (3.86-4.86); Red Cell Distribution Width 13.5 % (12.1-15.2)
[2024-12-06 01:15] LABS: PT Prothrombin Time 11.5 SECONDS (10.0-13.0); PTT, Activated Partial Thromb 27.1 SECONDS (24.3-36.9); Protime INR 1.01
[2024-12-06 01:17] LABS: ALT/SGPT 21 U/L (13-56); AST/SGOT 17 U/L (15-37); Albumin 3.6 g/dL (3.4-5.0); Albumin/Globulin Ratio 0.8 (1.1-1.8); Alkaline Phosphatase 148 U/L (45-117); Anion Gap 8.6 mEq/L (5.0-15.0); BUN Blood Urea Nitrogen 11 mg/dL (7-18); Bicarbonate 27 mEq/L (21-32); Bilirubin Direct 0.2 mg/dL (0-0.2); Bilirubin Indirect, Calculated 0.3 mg/dL (0.2-0.8); Bilirubin Total 0.5 mg/dL (0.2-1.0); Globulin 4.5 g/dL (2.3-3.5); Glomerular Filtration Rate 69 ml/min (=/>90); Glucose Level 100 mg/dL (74-106); Magnesium 2.5 mg/dL (1.6-2.4); Potassium 3.6 mEq/L (3.5-5.1); Protein, Total 8.1 g/dL (6.4-8.2); Sodium Level 139 mEq/L (136-145); Troponin High Sensitivity < 3.0 pg/mL (<58.9)
[2024-12-06] MEDS ORDERED: NA CHLORIDE 0.9% 1,000 ML ONE (01:50)
[2024-12-06] MEDS ORDERED: MECLIZINE HCL 12.5 MG TAB ONE (01:50)
[2024-12-06] MEDS ORDERED: PROMETHAZINE INJ 25 MG/ML AMP ONE ×2 (01:50→01:51)
--- NOTE | 2024-12-06 03:38 | ER ---
Nurse's Notes [facility] Name: Terese Deng Age: 54 yrs Sex: Female : 1970 Arrival Date: 12/05/2024 Time: 20:26 Bed 12 Private MD: Diagnosis: Other peripheral vertigo, bilateral;Acute peripheral positional vertigo Presentation: 12/05 20:41 Chief complaint: Patient states: Nausea, vomiting, and diarrhea onset tonight after cm10 dinner. Pt reports having dizziness that is worse with movement. pt also reports "I think I am dehydrated.". Coronavirus screen: Client denies travel out of the [place] in the last 14 days. Ebola Screen: Patient denies travel to an Ebola-affected area in the 21 days before illness onset. Initial Sepsis Screen: Does the patient meet any 2 criteria? No. Patient's initial sepsis screen is negative. Does the patient have a suspected source of infection? No. Patient's initial sepsis screen is negative. Risk Assessment: Do you want to hurt yourself or someone else? Patient reports no desire to harm self or others. Onset of symptoms was December 05, 2024. 20:41 Method Of Arrival: Wheelchair cm10 20:41 Acuity: HENRY 3 cm10 Triage Assessment: 20:44 General: Appears in no apparent distress. uncomfortable, Behavior is calm, cooperative. cm10 Pain: Complains of pain in abdomen Pain does not radiate. Pain currently is 0 out of 10 on a pain scale. at worst was 9 out of 10 on a pain scale. Neuro: No deficits noted. Level of Consciousness is awake, alert, obeys commands, Oriented to person, place, time, situation, Appropriate for age. Neuro: Reports dizziness. Respiratory: No deficits noted. Airway is patent Respiratory effort is even, unlabored, Respiratory pattern is regular, symmetrical. GI: Reports diarrhea, nausea, vomiting. Historical: - Allergies: 20:43 No Known Allergies; cm10 - Home Meds: 20:43 Zepbound 10 mg/0.5 mL subcutaneous Pen Injector [Active]; cm10 - PMHx: 20:43 None; cm10 - Immunization history:: Adult Immunizations up to date. - Infectious Disease History:: Denies. - Social history:: Smoking status: Patient denies any tobacco usage or history of. Screenin:56 [facility] ED Fall Risk Assessment (Adult) History of falling in the last 3 months, jb4 including since admission No falls in past 3 months (0 pts) Confusion or Disorientation No (0 pts) Intoxicated or Sedated No (0 pts) Impaired Gait No (0 pts) Mobility Assist Device Used No (0 pt) Altered Elimination No (0 pt) Score/Fall Risk Level 0 - 2 = Low Risk Oriented to surroundings, Maintained a safe environment. Abuse screen: Denies threats or abuse. Nutritional screening: No deficits noted. Tuberculosis screening: No symptoms or risk factors identified. Assessment: 22:56 Reassessment: Having difficulty establishing IV access, ER provider and charge nurse jb4 notified for ultrasound IV. General: Appears in no apparent distress. uncomfortable, Behavior is calm, cooperative, appropriate for age. Pain: Complains of pain in abdomen Pain does not radiate. Pain currently is 2 out of 10 on a pain scale. Quality of pain is described as aching. Neuro: Level of Consciousness is awake, alert, obeys commands, Oriented to person, place, time, situation. Cardiovascular: Patient's skin is warm and dry. Rhythm is sinus rhythm. Respiratory: Airway is patent Respiratory effort is even, unlabored, Respiratory pattern is regular, symmetrical. GI: Abdomen is non-distended, obese, Reports nausea, vomiting. Derm: Skin is intact, Skin is dry, Skin is normal, Skin temperature is warm. Musculoskeletal: Circulation, motion, and sensation intact. Range of motion: intact in all extremities. 12/06 00:22 Reassessment: Patient appears in no apparent distress at this time. Patient and/or jb4 family updated on plan of care and expected duration. Pain level reassessed. Patient is alert, oriented x 3, equal unlabored respirations, skin warm/dry/pink. Vital Signs: 12/05 20:41 BP 160 / 88; Pulse 86; Resp 18; Temp 98.2(O); Pulse Ox 100% ; Weight 79.38 kg; Height 5 cm10 ft. 1 in. ; Pain 9/10; 22:56 BP 154 / 81; Pulse 86; Resp 19; Pulse Ox 100% on R/A; jb4 03 00:22 BP 140 / 80; Pulse 85; Resp 16; Pulse Ox 100% on R/A; jb4 04:00 BP 138 / 82; Pulse 84; Resp 16; Pulse Ox 99% ; vc1 12/05 20:41 Body Mass Index 33.07 (79.38 kg, 154.94 cm) cm10 12/05 20:41 Pain Scale: Adult cm10 ED Course: 12/05 20:28 Patient arrived in ED. jj6 20:32 [facility] kb 20:32 Tera Johnson MD is Attending Physician. kb 20:43 Triage completed. cm10 20:44 Arm band placed on right wrist. Patient placed in waiting room. cm10 22:56 Patient has correct armband on for positive identification. Bed in low position. Call jb4 light in reach. Side rails up X 1. Provided Education on: plan of care. 22:56 No provider procedures requiring assistance completed. Missed attempt(s): 20 gauge in jb4 right antecubital area. Bleeding controlled, band aid applied, catheter tip intact. Missed attempt(s): 22 gauge in left antecubital area. 12/06 00:44 Qasim Cordero MD is Attending Physician. kb 00:54 Ayse Vann, VIVIEN is Primary Nurse. vc1 00:54 Inserted saline lock: 22 gauge in right antecubital area, using aseptic technique. vc1 Blood collected. Flushed with 10 mL NS. 03:48 IV discontinued, intact, bleeding controlled, No redness/swelling at site. Pressure hw dressing applied. 04:22 IV discontinued, intact, bleeding controlled, No redness/swelling at site. Pressure vc1 dressing applied. Administered Medications: 12/05 22:56 Not Given (Other Intervention Used): ondansetron 4 mg IVP once; over 2 minutes jb4 23:04 Drug: Meclizine PO 25 mg PO once Route: PO; jb4 12/06 00:21 Follow up: Response: No adverse reaction 4 12/05 23:04 Drug: Ondansetron PO 4 mg PO once Route: PO; jb4 12/06 00:21 Follow up: Response: No adverse reaction; Marked relief of symptoms jb4 02:02 Drug: Meclizine PO 25 mg PO once Route: PO; vc1 04:20 Follow up: Response: No adverse reaction; Marked relief of symptoms vc1 02:02 CANCELLED (Other Intervention Used): [id number] mg PO once vc1 02:02 Drug: Promethazine IVP 25 mg IVP once Route: IVP; Site: right antecubital; vc1 04:20 Follow up: Response: No adverse reaction; Marked relief of symptoms vc1 02:06 Drug: NS 0.9% IV 1000 ml IV at 1000 ml once; to be given as a bolus over 60 minutes vc1 Route: IV; Rate: 1000 ml; Site: right antecubital; 03:06 Follow up: IV Status: Completed infusion; IV Intake: 1000ml vc1 Medication: 03 22:56 VIS not applicable for this client. jb4 Intake: 12/06 03:06 IV: 1000ml; Total: 1000ml. vc1 Outcome: 03:37 Discharge ordered by MD. issa 04:21 Discharged to home via wheelchair, with significant other, vc1 04:21 Condition: stable 04:21 Discharge instructions given to patient, significant other, Instructed on discharge instructions, follow up and referral plans. medication usage, Demonstrated understanding of instructions, follow-up care, medications, Prescriptions given X 2, 04:22 Patient left the ED. vc1 Signatures: Kanchan Vera, BARK SKINNER-C BARK SKINNER-Ckb Neo Brock RN RN jb4 Deja Gomes jj6 Ayse Vann RN RN vc1 Qasim Cordero MD MD sp4 Raissa Gay RN RN cm10 Clarita Thompson
--- NOTE | 2024-12-06 03:38 | EDPHYS ---
Physician Documentation [facility] Name: Terese Deng Age: 54 yrs Sex: Female : 1970 Arrival Date: 12/05/2024 Time: 20:26 Bed 12 Private MD: ED Physician Qasim Cordero HPI: 12/05 20:39 This 54 yrs old Black Female presents to ER via Unassigned with complaints of kb Nausea/Vomiting/Diarrhea, Dizziness. 20:39 Pt is a 54 year old female who presents for n/v/d and dizziness that started after kb dinner tonight. states "I think I'm dehydrated." Reports she has had a couple episodes of vomiting and diarrhea. REports dizziness worse with movement. . Historical: - Allergies: 20:43 No Known Allergies; cm10 - Home Meds: 20:43 Zepbound 10 mg/0.5 mL subcutaneous Pen Injector [Active]; cm10 - PMHx: 20:43 None; cm10 - Immunization history:: Adult Immunizations up to date. - Infectious Disease History:: Denies. - Social history:: Smoking status: Patient denies any tobacco usage or history of. ROS: 20:39 Constitutional: As per HPI kb Exam: 20:39 Constitutional: This is a well developed, well nourished patient who is awake, alert, kb and in no acute distress. Head/Face: Normocephalic, atraumatic. Eyes: Pupils equal round and reactive to light, extra-ocular motions intact. Lids and lashes normal. Conjunctiva and sclera are non-icteric and not injected. Cornea within normal limits. Periorbital areas with no swelling, redness, or edema. ENT: Moist Mucous membranes Cardiovascular: Regular rate Respiratory: Respirations even and unlabored. No increased work of breathing. Talking in full sentences Abdomen/GI: Soft, non-tender. No distention Skin: Warm, dry with normal turgor. Normal color. MS/ Extremity: Pulses equal, no cyanosis. Neurovascular intact. Full, normal range of motion. Neuro: Awake and alert, GCS 15, oriented to person, place, time, and situation. 22:54 ECG was reviewed by the Attending Physician. kb Vital Signs: 20:41 BP 160 / 88; Pulse 86; Resp 18; Temp 98.2(O); Pulse Ox 100% ; Weight 79.38 kg; Height 5 cm10 ft. 1 in. ; Pain 9/10; 22:56 BP 154 / 81; Pulse 86; Resp 19; Pulse Ox 100% on R/A; jb4 12/06 00:22 BP 140 / 80; Pulse 85; Resp 16; Pulse Ox 100% on R/A; jb4 04:00 BP 138 / 82; Pulse 84; Resp 16; Pulse Ox 99% ; vc1 12/05 20:41 Body Mass Index 33.07 (79.38 kg, 154.94 cm) cm10 12/05 20:41 Pain Scale: Adult cm10 MDM: 12/05 20:32 Medical Screening Exam initiated 12/06 00:42 Data reviewed: vital signs, nurses notes. Historians other than the Patient: roberto Spouse/Significant Other: spouse. ED course: Delay due to inability to obtain labs. RN at bedside to obtain IV and labs using US. . 00:44 Transition of care: After a detail discussion of the patient's case, care is kb transferred to Qasim Cordero MD. 12/05 20:40 Order name: Basic Metabolic Panel; Complete Time: 01:40 kb 12/05 20:40 Order name: CBC with Diff; Complete Time: 01:40 kb 12/05 20:40 Order name: Hepatic Function; Complete Time: 01:40 kb 12/05 20:40 Order name: Magnesium; Complete Time: 01:40 kb 12/05 20:40 Order name: Protime (+inr); Complete Time: 01:40 kb 12/05 20:40 Order name: Ptt, Activated; Complete Time: 01:40 kb 12/05 20:40 Order name: Troponin High Sensitivity; Complete Time: 01:40 kb 12/05 20:40 Order name: Urinalysis w/ reflexes; Complete Time: 23:47 kb 12/05 20:40 Order name: EKG; Complete Time: 20:41 kb 12/05 20:40 Order name: Cardiac monitoring; Complete Time: 22:56 kb 12/05 20:40 Order name: EKG - Nurse/Tech; Complete Time: 22:56 kb 12/05 20:40 Order name: IV Saline Lock; Complete Time: 00:56 kb 12/05 20:40 Order name: Labs collected and sent; Complete Time: 00:56 kb 12/05 20:40 Order name: O2 Per Protocol; Complete Time: 22:56 kb 12/05 20:40 Order name: O2 Sat Monitoring; Complete Time: 22:56 kb EC/05 22:54 Rate is 84 beats/min. Rhythm is regular. QRS [place] is Normal. LA interval is normal at kb 160 msec. QRS interval is normal at 86 msec. QT interval is normal at 475 msec. Administered Medications: 22:56 Not Given (Other Intervention Used): ondansetron 4 mg IVP once; over 2 minutes jb4 23:04 Drug: Meclizine PO 25 mg PO once Route: PO; jb4 12/06 00:21 Follow up: Response: No adverse reaction jb4 12/05 23:04 Drug: Ondansetron PO 4 mg PO once Route: PO; jb4 12/06 00:21 Follow up: Response: No adverse reaction; Marked relief of symptoms jb4 02:02 Drug: Meclizine PO 25 mg PO once Route: PO; vc1 04:20 Follow up: Response: No adverse reaction; Marked relief of symptoms vc1 02:02 CANCELLED (Other Intervention Used): [id number] mg PO once vc1 02:02 Drug: Promethazine IVP 25 mg IVP once Route: IVP; Site: right antecubital; vc1 04:20 Follow up: Response: No adverse reaction; Marked relief of symptoms vc1 02:06 Drug: NS 0.9% IV 1000 ml IV at 1000 ml once; to be given as a bolus over 60 minutes vc1 Route: IV; Rate: 1000 ml; Site: right antecubital; 03:06 Follow up: IV Status: Completed infusion; IV Intake: 1000ml vc1 Disposition: 03:36 Co-signature as Attending Physician, Qasim Cordero MD I agree with the assessment sp4 and plan of care. I reviewed the patient's care provided by Advanced Practice Provider \\T\\ agree w/ the diagnosis \\T\\ care plan. I personally saw the pt \\T\\ performed a substantive portion of the visit, incldng all aspects of the (History/Exam/Medical Decision Making). Disposition Summary: 12/06/24 03:37 Discharge Ordered Notes: Location: Home sp4 Problem: new sp4 Symptoms: have improved sp4 Condition: Stable sp4 Diagnosis - Other peripheral vertigo, bilateral sp4 - Acute peripheral positional vertigo sp4 Followup: sp4 - With: Private Physician - When: 7 - 10 days - Reason: Recheck today's complaints Discharge Instructions: - Discharge Summary Sheet sp4 - Benign Positional Vertigo sp4 Forms: - Work release form vc1 - Patient Portal Instructions sp4 Prescriptions: - Meclizine 25 mg Oral tablet - take 1 tablet ORAL route every 8 hours As needed PRN vertigo; 30 tablet; sp4 Refills: 0, Product Selection Permitted - ondansetron 8 mg Oral Tablet,disintegrating - take 1 tablet ORAL route every 8 hours PRN nausea; 30 tablet; Refills: 0, sp4 Product Selection Permitted Signatures: Dispatcher [employer] EDMS Kanchan Vera, [facility] Alicia, RN RN jb4 Ayse Vann RN RN vc1 Qasim Cordero MD MD sp4 Raissa Gay RN RN cm10 Corrections: (The following items were deleted from the chart) 02:02 01:47 Promethazine PO 25 mg PO once ordered. sp4 vc1
[2024-12-06 04:32] VITALS: TEMP 98.2
[2024-12-06 04:48] VITALS: BP 138/82; O2SAT 99
== END 2024-12-06 04:22 | disposition home or self-care (01) ==
LOC: ER 20:26
DX: H81.393 Other peripheral vertigo, bilateral (principal)
CPT/HCPCS: 96361; 93005; 85025; 81001; 80048; 36415; 83735; 85610; 80076; 85730; 84484; 96374; 99284; J2550; J8597 ×2; Q0162; J7030